=== PATIENT | female | born 1985 | race Two or more races ===

== ENCOUNTER 2022-07-03 11:12 | Outpatient (REF) | payer OTHER, SELFPAY ==
--- NOTE | ~2022-07-03 | XR_ITS ---
EXAMINATION: XR CERVICAL SPINE CLINICAL INFORMATION: Cervicalgia COMPARISON: None TECHNIQUE: 3 views of the cervical spine were obtained. FINDINGS: There is straightening of cervical lordosis with well aligned vertebral bodies, but with mild narrowing of C4-C5 intervertebral disc space and marginal spurring of C5 endplate. Odontoid view reveals no asymmetry. There is no spondylolysis or listhesis and soft tissues are unremarkable. XR/XR cervical spine 2V IMPRESSION: Mild degenerative disc disease at the level of C4-C5
== END 2022-07-03 11:13 | disposition home or self-care (01) ==
LOC: HO.XRAY 11:12
PROVIDERS: Visit Provider Psychiatry & Neurology Neurology
DX: G43.909 Migraine, unspecified, not intractable, without status migrainosus (principal); M54.2 Cervicalgia
CPT/HCPCS: 72040; 99202

== ENCOUNTER → 2022-10-09 13:54 | Outpatient (BNVA) | payer OTHER, SELFPAY | PROVIDERS: PCP Family Medicine; Visit Provider Psychiatry & Neurology Neurology | DX: M54.2 Cervicalgia (principal); G43.909 Migraine, unspecified, not intractable, without status migrainosus | CPT/HCPCS: 99212 ==

== ENCOUNTER → 2022-11-27 08:56 | Outpatient (BNVA) | payer OTHER, SELFPAY | PROVIDERS: PCP Family Medicine; Visit Provider Psychiatry & Neurology Neurology | DX: G43.909 Migraine, unspecified, not intractable, without status migrainosus (principal); M54.2 Cervicalgia | CPT/HCPCS: 99212 ==

== ENCOUNTER 2022-12-10 07:54 | Outpatient (REF) | payer OTHER, SELFPAY ==
--- NOTE | ~2022-12-10 | CT_ITS ---
EXAMINATION: CT HEAD WITHOUT CONTRAST CLINICAL INFORMATION: Migraine sinusitis. COMPARISON: None available. TECHNIQUE: Contiguous axial imaging was performed from the skull base to vertex without intravenous administration of contrast. This CT examination was performed using dose optimization techniques as appropriate, variously including the following: *Automated exposure control *Adjustment of mA and/or kV according to patient size (this includes techniques or standardized protocols for targeted exams where dose is matched to indication/reason for exam; i.e. extremities or head) *Use of iterative reconstruction technique DLP: 845 mGy-cm FINDINGS: There is no acute intra-axial, extra-axial bleed, masses or midline shift. There is no acute infarction in evolution. There is no edema. The clifford to white matter differentiation is maintained normal. The lateral ventricles are symmetric in size and configuration without enlargement. Bone windows reveal no calvarial abnormality. Bilateral paranasal sinuses and mastoid air cells are well-aerated. There is no scalp soft tissue swelling. CT/CT head/brain wo IV con IMPRESSION: No acute intracranial process seen.
== END 2022-12-10 07:55 | disposition home or self-care (01) ==
LOC: HO.CT 07:54
PROVIDERS: Visit Provider Psychiatry & Neurology Neurology
DX: G43.909 Migraine, unspecified, not intractable, without status migrainosus (principal); J32.9 Chronic sinusitis, unspecified
CPT/HCPCS: 70450

== ENCOUNTER 2025-04-05 07:23 | Outpatient (AMB) | payer OTHER, SELFPAY ==
--- OUTSIDE RECORDS SUMMARY | 2025-04-05 07:25 | XMS_ITS | Encounter Summary ---
Author Organization [facility] Address [id number] [place] [id number] Care Team Providers Care [employer] Name Role Phone Jody Castro MD Primary Care Provider [phone] Encounter Details Date Type Department Care Team (Latest Contact Info) Description 03/09/2025 Lab Requisition [facility] - Main Lab [address] [facility] [place] [address] Renato Fuentes MD [address] [phone] Encounter for gynecological examination (general) (routine) without abnormal findings Social History Tobacco Use Types Packs/Day Years Used Date Smoking Tobacco: Never Smokeless Tobacco: Never Alcohol Use Standard Drinks/Week Comments Yes 0 (1 standard drink = 0.6 oz pur e alcohol) Comments No Sex and Gender Information Value Date Recorded Sex Assigned at Not on file Legal Sex Female 5:37 AM EST Gender Identity Not on file Sexual Orientation Not on file documented as of this encounter Plan of Treatment Upcoming Encounters Date Type Department Care Team (Late st Contact Info) Description 06/07/2025 10:00 AM EDT Office Visit Internal Medicine - [facility] [address] [place], [place] [phone] Jody Castro MD [address] [place], [place] documented as of this encounter Procedures Procedure Name Priority Date/Time Associated Diagnosis Comments PAP SMEAR Routine 03/09/2025 12:00 AM EDT Encounter for gynecological examination (general) (routine) without abnormal findings documented in this encounter Results * Pap smear (03/09/2025 12:00 AM EDT) Interpretation Negative for intraepithelial lesion or malignancy 03/18/2025 3:17 PM EDT [facility] General Categorization Negative 03/18/2025 3:17 PM EDT [facility] LMP 03/08/2025 03/18/2025 3:17 PM EDT [facility] Additional Information Note: Adequacy deemed satisfactory after reprocessing with the acid wash procedure for blood. 03/18/2025 3:17 PM EDT [facility] Specimen Adequacy Satisfactory for evaluation, endocervical/mandel sformation zone component present 03/18/2025 3:17 PM EDT [facility] Pap Methodology Liquid Based Pap Test 03/18/2025 3:17 PM EDT [facility] Disclaimer The Pap test is a screening test which carries an inherent false negative rate. These test results should be correlated with the patient's clinical findings and history. This Pap test was processed using an automated screening system. Technical cytopathology services provided by [facility], at [address] [place] [address] (CLIA # [id number]/Flaca Melchor MD, [employer].) 03/18/2025 3:17 PM EDT [facility] Console Pap Interpretation Reported 03/18/2025 3:17 PM EDT [facility] Brushing/Spatula Cervix uteri structure / Unknown 03/09/2025 03/09/2025 2:37 PM EDT us Renato Fuentes MD LAB CYTOLOGY ORDERABLES Final Result [facility] [address] [place] [address], documented in this encounter Visit Diagnoses Diagnosis Encounter for gynecological examination (general) (routine) without abnormal findings documented in this encounter Additional Health Concerns Assessment Noted Time PHQ-9 Depression Total Score: 0 03/04/20 9:43 AM EDT documented as of this encounter Care Teams [employer] Relationship Specialty Start Date End Date Jody Castro MD [address] [place] [phone] PCP - General Internal Medicine 02/24/25 documented as of this encounter
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
[2025-04-05 07:32] VITALS: BP 116/70; PULSE 77; O2SAT 98; BMI 27.8
== END 2025-04-05 08:16 | disposition home or self-care (01) ==
LOC: HO.HSMS 07:23
PROVIDERS: PCP Internal Medicine; Visit Provider Psychiatry & Neurology Neurology
DX: G43.109 Migraine with aura, not intractable, without status migrainosus (principal); M54.2 Cervicalgia
CPT/HCPCS: 99214

== ENCOUNTER → 2025-04-05 07:23 | Outpatient (BNVA) | payer OTHER, SELFPAY | PROVIDERS: PCP Internal Medicine; Visit Provider Psychiatry & Neurology Neurology | DX: G43.109 Migraine with aura, not intractable, without status migrainosus (principal); M54.2 Cervicalgia | CPT/HCPCS: 99212 ==